=== PATIENT | male | born 1995 | race Caucasian/White ===

== ENCOUNTER 2020-11-09 10:23 | Outpatient (RCR) | payer OTHER, SELFPAY ==
[2020-11-09] MEDS: COVID-19 VACC, MRNA(PFIZER)/PF 30 MCG/0.3 ML SYRINGE IM (12:20)
[2020-12-01] MEDS: COVID-19 VACC, MRNA(PFIZER)/PF 30 MCG/0.3 ML SYRINGE IM (11:51)
== END 2021-02-09 23:59 ==
LOC: IMMUN 10:23
PROVIDERS: Visit Provider Family Medicine
DX: Z23 Encounter for immunization (principal)
CPT/HCPCS: 0001A; 0002A; 91300

== ENCOUNTER 2023-04-20 19:20 | Emergency (ER) | payer OTHER, SELFPAY ==
[2023-04-20 19:22] VITALS: BP 143/102; PULSE 64; RESP 18; TEMP 36.3; O2SAT 96; BMI 38.4
--- NOTE | 2023-04-20 20:49 | EDS_ITS ---
HPI History of Present Illness Chief Complaint: Laceration Informant: patient Onset/Context/Timing Onset: Today Narrative Narrative: Patient presents with laceration to the right wrist. 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 He is right-hand dominant. He is unsure of his last tetanus update. PFSH PFSH Medical History no medical history no medical history Home Medications NK 04/20/23 [History Last Taken Unknown] Allergy/AdvReac Type Severity Reaction Status Date / Time No Known Allergies Allergy Verified 04/20/23 19:21 Surgical History no surgical history Social History Smoking Status: Never smoker ROS ROS ED Constitutional Constitutional ED: Denies chills or fever(s) Cardiovascular Cardiovascular: Denies chest pain Respiratory/Chest Respiratory/Chest: Denies cough Musculoskeletal Musculoskeletal: Reports arthralgias Integumentary Reports other Details: Right wrist laceration Neurologic Neurologic: Denies paresthesias or weakness EXAM Physical Exam Const Vital Signs: 04/20/23 19:22 Temperature 97.4 F L Temperature Source Temporal Pulse Rate 64 Respiratory Rate 18 Blood Pressure 143/102 H Blood Pressure Mean 115 Pulse Ox 96 Oxygen Delivery Method Room Air Positive well nourished and well developed General Appearance ED: well developed Eyes EOMs intact bilaterally Resp normal respiratory effort Cardio regular rhythm Rate: regular rate Extremity Extremity Narrative: 1.5 cm superficial laceration on the volar aspect of the right wrist. No active bleeding at this time. Good cap refill and sensation distally. Full range of motion of the wrist without difficulty. Neuro oriented x3, no focal motor deficits and no sensory deficits noted MDM MDM MDM Narrative Medical decision making narrative: Wound is cleansed. Dermabond is used to seal the wound. Dressing applied. Tetanus update is provided and patient will follow-up with the [facility]. Discharge Plan Triage Chief Complaint: Laceration ED Provider: Mariaa Peterson Dx/Rx/DC Orders Clinical Impression: Laceration of wrist Instructions: ED Laceration, Extremity: Skin Glue Prescriptions: No Action NK Stand Alone Forms: Work Status Form Primary Care Provider: Care Physician,No Primary Referrals: Corporate,Care [Group of Physicians] - 5-7 Days Care Physician,No Primary [Primary Care Provider] - Disposition Disposition: Home, Self Care Discharge Date/Time: 04/20/23 21:11
[2023-04-20] MEDS: Diphth,Pertuss(Acell),Tet Vac 0.5 ML Vial IM (20:54)
== END 2023-04-20 21:11 | disposition home or self-care (01) ==
PROVIDERS: Emergency Provider Emergency Medicine; Visit Provider Emergency Medicine
DX: S61.511A Laceration without foreign body of right wrist, initial encounter (principal); W25.XXXA Contact with sharp glass, initial encounter; Y99.0 Civilian activity done for income or pay; Z23 Encounter for immunization
CPT/HCPCS: 12001; 90471; 90715; 99283

== ENCOUNTER 2024-03-11 23:30 | Emergency (ER) | payer OTHER, SELFPAY ==
[2024-03-11 23:31] VITALS: BP 155/88; PULSE 94; RESP 18; TEMP 36.9; O2SAT 99; BMI 30.2
--- NOTE | 2024-03-12 | EX.ED.UPPERE ---
HPI History of Present Illness HPI Narrative: Patient presents with injury to his right middle finger that occurred today while he was at work. Patient states he accidentally closed in a car door. Patient states it is over the distal phalanx of his right middle finger. Patient states that it feels like there is pressure, aching, and sharp pain. Patient noted some discoloration of his nailbed. Patient is right-hand dominant. Patient denies any paresthesias or weakness. Patient denies any other injuries. Patient states his last tetanus was up-to-date. Chief Complaint: Upper Extremity Injury Onset/Context/Timing Onset: Today Context: Sudden Onset Timing: Continuous Quality of Pain: Sharp, Aching and - (Pressure) Location: Right middle finger distal phalanx Worsened by: Palpation and movement Relieved by: Rest Associated Symptoms Associated Symptoms: Negative for Parasthesia, Weakness or Loss of Funtion Narrative Tetanus Immunization: <5 years PFSH PFS Medical History no medical history no medical history Home Medications ?Medication ?Instructions ?Recorded ?Last Taken ?Type azithromycin 250 mg tablet See Rx Instructions PO .COMPLEX #6 09/28/23 Unknown Rx tabs Allergy/AdvReac Type Severity Reaction Status Date / Time No Known Allergies Allergy Verified 03/11/24 23:36 Surgical History no surgical history no surgical history Social History Smoking Status: Never smoker ROS ROS ED Constitutional Constitutional ED: Denies chills or fever(s) Eyes Eyes: Denies blurry vision or change in vision ENT ENT ED: Denies rhinorrhea or sore throat Cardiovascular Cardiovascular: Denies chest pain or palpitations Respiratory/Chest Respiratory/Chest: Denies cough or dyspnea Gastrointestinal Gastrointestinal: Denies nausea or vomiting Genitourinary Genitourinary ED: Denies dysuria or hematuria Musculoskeletal Musculoskeletal: Denies back pain or neck pain Integumentary Denies abscess or rash Neurologic Neurologic: Denies headache(s) or weakness Allergic/Immunologic Allergic/Immunologic ED: Denies mouth swelling or urticaria EXAM Physical Exam Const Vital Signs: 03/11/24 23:31 Temperature 98.4 F Temperature Source Oral Pulse Rate 94 Respiratory Rate 18 Blood Pressure 155/88 H Blood Pressure Mean 110 Pulse Ox 99 Oxygen Delivery Method Room Air Positive well nourished and well developed General Appearance ED: well developed and NAD HEENT Reports moist mucous membranes Neck full ROM and supple Extremity Extremity Narrative: There is tenderness over the distal phalanx of the right middle finger. There is a subungual hematoma involving approximately 50% of the nailbed. There is no obvious deformity noted. Range of motion was slightly limited in flexion of the DIP joint secondary to pain. Sensation was intact to light touch in all digits. Capillary refill was less than 2 seconds in all digits. Strength is 5/5 in flexion and extension of the MP, PIP, and DIP joints of the right middle finger. Neuro oriented x3, CN's II-XII intact bilaterally, moves all extremities, no focal motor deficits and no sensory deficits noted Sensorium / Orientation: alert Motor Exam: strength 5/5 throughout Psych mental status grossly normal MDM MDM MDM Narrative Medical decision making narrative: Patient was advised of the need for trephination of the nail plate. Patient is agreeable with this. The distal phalanx was cleaned with chlorhexidine. The tip of an 18-gauge needle was used to trephinate the nail plate and 3 holes were placed. There is some bleeding from each of the holes. Patient felt better after this. Patient was instructed to ice and elevate the right middle finger. Patient was instructed to take Tylenol or ibuprofen as needed for pain. Patient was instructed to follow-up with his primary care physician in 5 to 7 days. Patient understood and was agreeable with the plan. All questions were answered. Discharge Plan Triage Chief Complaint: Upper Extremity Injury ED Provider: Cong Jung Dx/Rx/DC Orders Clinical Impression: Subungual hematoma of right middle finger, Crushing injury of right middle finger, initial encounter Instructions: ED Subungual Hematoma Prescriptions: No Action azithromycin 250 mg tablet See Rx Instructions PO .COMPLEX Qty: 6 0RF Rx Instructions: take 500 mg today (day 1), then 250 mg for 4 days (days 2-5) PO Primary Care Provider: Care Physician,No Primary Referrals: Care Physician,No Primary [Primary Care Provider] - Clinic,NOW [Non-Staff] - 5-7 Days Print Language: Bulgarian Disposition Disposition: Home, Self Care
== END 2024-03-12 00:30 | disposition home or self-care (01) ==
LOC: ED 03-12 00:29
PROVIDERS: Emergency Provider Emergency Medicine; Visit Provider Emergency Medicine
DX: S60.131A Contusion of right middle finger with damage to nail, initial encounter (principal); W23.1XXA Caught, crushed, jammed, or pinched between stationary objects, initial encounter; Y92.89 Other specified places as the place of occurrence of the external cause; Y99.0 Civilian activity done for income or pay
CPT/HCPCS: 11740; 99282

== ENCOUNTER → 2025-02-25 | Outpatient (CLI) | payer OTHER, SELFPAY ==
[2025-02-25 12:12] LABS: Follicle Stimulating Hormone 2.8 mIU/mL; Luteinizing Hormone 3.6 mIU/mL
== END | disposition home or self-care (01) ==
PROVIDERS: Referring Provider Nurse Practitioner; Visit Provider Nurse Practitioner
DX: E29.1 Testicular hypofunction (principal)
CPT/HCPCS: 36415; 83001; 83002; 84146